=== PATIENT | male | born 1965 | race Caucasian/White ===

== ENCOUNTER 2016-11-08 19:21 | Emergency (ER) | payer BC ==
[2016-11-08] MEDS ORDERED: CLOPIDOGREL BISULFATE 300 MG TABLET PO ONE (20:32)
[2016-11-08 20:35] LABS: ABSOLUTE BASOPHILS # (AUTO) 0.1 10^3/uL (0.0-0.2); ABSOLUTE EOSINOPHILS # (AUTO) 0.2 10^3/uL (0.0-0.6); ABSOLUTE LYMPHOCYTES (AUTO) 2.2 10^3/uL (0.5-4.7); ABSOLUTE MONOCYTES (AUTO) 0.4 10^3/uL (0.1-1.4); ABSOLUTE NEUT (AUTO) 3.9 10^3/uL (1.7-8.2); EOSINOPHILS % (AUTO) 2.6 % (0-6); HEMATOCRIT 41.1 % (37.9-51.0); HEMOGLOBIN 14.1 g/dL (13.5-17.0); HGB HCT DIFFERENCE 1.2; LYMPHOCYTES % (AUTO) 32.7 % (13-45); MEAN CORPUSCULAR HEMOGLOBIN 30.2 pg (27.0-33.4); MEAN CORPUSCULAR HGB CONC 34.3 g/dL (32.0-36.0); MEAN CORPUSCULAR VOLUME 88 fl (80-97); MONOCYTES % (AUTO) 6.1 % (3-13); RED BLOOD COUNT 4.67 10^6/uL (4.35-5.55); RED CELL DISTRIBUTION WIDTH 12.9 % (11.5-14.0); SEGMENTED NEUTROPHILS % (AUTO) 57.6 % (42-78); WHITE BLOOD COUNT 6.7 10^3/uL (4.0-10.5)
[2016-11-08 20:36] LABS: PROTHROMBIN TIME 12.2 SEC (11.4-15.4)
[2016-11-08 20:37] LABS: PARTIAL THROMBOPLASTIN TIME 26.2 SEC (23.5-35.8)
[2016-11-08 20:59] LABS: ALANINE AMINOTRANSFERASE 28 U/L (21-72); ALBUMIN 3.7 g/dL (3.5-5.0); ALKALINE PHOSPHATASE 59 U/L (38-126); ANION GAP 12 (5-19); ASPARTATE AMINO TRANSFERASE 22 U/L (17-59); BILIRUBIN,DIRECT 0.2 mg/dL (0.0-0.4); BILIRUBIN,TOTAL 0.5 mg/dL (0.2-1.3); BLOOD UREA NITROGEN 28 mg/dL (7-20); CALCIUM 9.3 mg/dL (8.4-10.2); CARBON DIOXIDE 24 mmol/L (22-30); CHLORIDE 104 mmol/L (98-107); CREATINE KINASE 152 U/L (55-170); CREATININE RESULT 1.16 mg/dL (0.52-1.25); GLUCOSE 216 mg/dL (75-110); POTASSIUM 4.7 mmol/L (3.6-5.0); SODIUM 139.5 mmol/L (137-145); TOTAL PROTEIN 6.2 g/dL (6.3-8.2)
--- NOTE | 2016-11-08 21:09 | ER Document Report ---
ED General - General Chief Complaint: S/S of Possible Stroke Stated Complaint: POSSIBLE STROKE Notes: Patient is a 50-year-old male with past medical history of hypertension, diabetes and hyperlipidemia who presents with complaints of a 5 minute episode of expressive aphasia. States he was out dinner and he suddenly became unable to speak correctly. States he was unable to articulate his words but could fully understand language but knew what he wanted to say. The symptoms did spontaneously resolve after approximately 5 minutes. Nothing was noted to improve or worsen the symptoms. He denies any associated weakness, numbness, headache, neck pain, facial droop, or difficulty with ambulation. No history of similar symptoms in the past. He has not seen his primary care doctor regarding today's concerns. He has no history of TIA or stroke. TRAVEL OUTSIDE OF THE [place] IN LAST 30 DAYS: No - Related Data Allergies/Adverse Reactions: No Known Allergies Allergy (Unverified 11/08/16 21:40) Home Medications: Current Home Medications Atorvastatin Calcium [Atorvastatin Calcium] 20 mg PO DAILY 11/08/16 [History] Fenofibrate,Micronized [Fenofibrate] 134 mg PO DAILY 11/08/16 [History] Glimepiride [Glimepiride] 4 mg PO BID 11/08/16 [History] Insulin Glargine,Hum.rec.anlog [Rob Solostar] 50 unit SUBCUT BID 11/08/16 [ History] Lisinopril [Lisinopril] 40 mg PO DAILY 11/08/16 [History] Metformin HCl [Metformin HCl] 500 mg PO BID 11/08/16 [History] Paroxetine HCl [Paroxetine HCl] 60 mg PO QAM 11/08/16 [History] Promethazine HCl [Promethazine HCl] 25 mg PO Q4HP PRN 11/08/16 [History] Past Medical History - General Information source: Patient - Social History Smoking Status: Never Smoker Frequency of alcohol use: None Drug Abuse: None Lives with: Spouse/Significant other Family History: Reviewed & Not Pertinent Review of Systems - Review of Systems Notes: Constitutional: Negative for fever. HENT: Negative for sore throat. Eyes: Negative for visual changes. Cardiovascular: Negative for chest pain. Respiratory: Negative for shortness of breath. Gastrointestinal: Negative for abdominal pain, vomiting or diarrhea. Genitourinary: Negative for dysuria. Musculoskeletal: Negative for back pain. Skin: Negative for rash. Neurological: Negative for headaches, weakness or numbness. 10 point ROS negative except as marked above and in HPI. Physical Exam - Vital signs Vitals: Temp Pulse Resp BP Pulse Ox 97.8 F 92 20 157/100 H 96 11/08/16 19:32 11/08/16 19:32 11/08/16 19:32 11/08/16 19:32 11/08/16 19:32 Interpretation: Hypertensive Notes: PHYSICAL EXAMINATION: GENERAL: Well-appearing, well-nourished and in no acute distress. HEAD: Atraumatic, normocephalic. EYES: Pupils equal round and reactive to light, extraocular movements intact, sclera anicteric, conjunctiva are normal. ENT: nares patent, oropharynx clear without exudates. Moist mucous membranes. NECK: Normal range of motion, supple without lymphadenopathy LUNGS: Breath sounds clear to auscultation bilaterally and equal. No wheezes rales or rhonchi. HEART: Regular rate and rhythm without murmurs ABDOMEN: Soft, nontender, normoactive bowel sounds. No guarding, no rebound. No masses appreciated. EXTREMITIES: Normal range of motion, no pitting or edema. No cyanosis. NEUROLOGICAL: Face symmetric. Tongue protrudes midline. Extraocular motions intact. Pupils are 2 mm and equally reactive. Normal speech, normal gait. 5 out of 5 strength in both the distal and proximal upper and lower extremities bilaterally. Sensation is grossly intact throughout. Finger to nose testing normal. Pronator drift normal. PSYCH: Normal mood, normal affect. SKIN: Warm, Dry, normal turgor, no rashes or lesions noted. Course - Re-evaluation Re-evalutation: 11/08/16 21:08 She presents with symptoms that are most consistent with an acute transient ischemic attack. It sounds as if patient had an expressive aphasia that lasted for approximate 5 minutes without any additional neurologic deficits. His NIH stroke scale time of arrival is 0. He has no neurologic deficits or so symptoms at this time. Patient is ready medically managed for hypertension, hyperlipidemia and diabetes. Will obtain a carotid Doppler study to see if there is intervention required from this perspective. Will also load with Plavix as patient is already on aspirin. 11/08/16 23:29 Unfortunately we could not obtain a carotid Doppler study tonight due to miscommunication with the Doppler tach. Patient will schedule this test as soon as possible tomorrow through his primary care doctor. He has remained asymptomatic. He will be started on Plavix for the next 21 days. He is considered low risk by the ABCD 2 score and I believe it is appropriate to manage this episode as an outpatient today. Patient and his at the bedside on agreement with this and of verbalized the understanding that they need to follow-up very closely as an outpatient. ABCD2 score: 3 points Per the validation study, 0-3 points: Low Risk 2-Day Stroke Risk: 1.0% 7-Day Stroke Risk: 1.2% 90-Day Stroke Risk: 3.1% - Vital Signs Vital signs: Temp Pulse Resp BP Pulse Ox 97.8 F 92 14 144/89 H 93 11/08/16 19:32 11/08/16 19:32 11/08/16 23:31 11/08/16 23:31 11/08/16 23:31 - Laboratory Result Diagrams: 11/08/16 20:19 11/08/16 20:19 Laboratory results interpreted by me: 11/08/16 20:19 BUN 28 H Glucose 216 H Total Protein 6.2 L - Diagnostic Test Radiology reviewed: Image reviewed, Reports reviewed Radiology results interpreted by me: 11/08/16 23:30 CT head: No acute intracranial bleed or stroke - EKG Interpretation by Me Additional EKG results interpreted by me: 11/08/16 23:30 Normal sinus rhythm. Rate 88. No ST elevations or depressions. QTC is 465. Discharge - Discharge Clinical Impression: TIA (transient ischemic attack) Qualifiers: Transient cerebral ischemia type: unspecified Qualified Code(s): G45.9 - Transient cerebral ischemic attack, unspecified Condition: Good Disposition: HOME, SELF-CARE Additional Instructions: Your symptoms today are consistent with a transient ischemic attack. Please take the Plavix as prescribed in addition to the aspirin you are already taking. You will take the Plavix for the next 21 days. Please return if you develop recurrence of your speech difficulties, weakness, numbness, chest pain, vomiting, severe headache, or any other symptoms that are worrisome to you. Prescriptions: Clopidogrel Bisulfate [Plavix 75 mg Tablet] 75 mg PO DAILY #21 tablet Referrals: MALCOM LAWRENCE MD [Primary Care Provider] - Follow up tomorrow
[2016-11-08 21:11] LABS: TROPONIN I < 0.012 ng/mL
[2016-11-08 23:45] VITALS: BP 144/89
--- NOTE | 2016-11-09 08:10 | EKG REPORT ---
SEVERITY:- ABNORMAL ECG - SINUS RHYTHM PROBABLE LEFT ATRIAL ABNORMALITY LEFT VENTRICULAR HYPERTROPHY : Confirmed by: John Matute MD 09-Nov-2016 08:08:58
== END 2016-11-08 23:54 | disposition home or self-care (01) ==
LOC: ER 19:21
DX: G45.9 Transient cerebral ischemic attack, unspecified (principal); I10 Essential (primary) hypertension; E11.9 Type 2 diabetes mellitus without complications; E78.5 Hyperlipidemia, unspecified; Z79.899 Other long term (current) drug therapy; Z79.4 Long term (current) use of insulin
CPT/HCPCS: 93005; 99285; 36415; 82553; 82550; 85025; 85610; 85730; 80053; 84484; 71010; 70450; 93010; J3490

== ENCOUNTER → 2016-11-15 | Outpatient (CLI) | payer BC | LOC: SP 09:34 | PROVIDERS: ATTEND Internal Medicine | DX: G45.9 Transient cerebral ischemic attack, unspecified (principal); M54.2 Cervicalgia | CPT/HCPCS: 93880 ==

== ENCOUNTER → 2018-03-14 | Outpatient (CLI) | payer BC ==
[2018-03-14 10:39] LABS: ALANINE AMINOTRANSFERASE 41 U/L (21-72); ANION GAP 11 (5-19); BLOOD UREA NITROGEN 22 mg/dL (7-20); CALCIUM 10.1 mg/dL (8.4-10.2); CARBON DIOXIDE 29 mmol/L (22-30); CHLORIDE 101 mmol/L (98-107); CHOLESTEROL 151.05 mg/dL (0-200); GLUCOSE 342 mg/dL (75-110); POTASSIUM 5.1 mmol/L (3.6-5.0); SODIUM 141.1 mmol/L (137-145); TRIGLYCERIDES 510 mg/dL (<150)
[2018-03-14 10:50] LABS: DIRECT LDL 32 mg/dL (<100)
[2018-03-15 11:40] LABS: CREATININE URINE 60.7 mg/dL (Not Estab.)
== END ==
LOC: LAB 09:50
PROVIDERS: ATTEND Internal Medicine
DX: E11.9 Type 2 diabetes mellitus without complications (principal); E78.5 Hyperlipidemia, unspecified; Z79.899 Other long term (current) drug therapy
CPT/HCPCS: 80048; 80061; 82043; 82570; 83036; 84460

== ENCOUNTER 2018-03-21 20:59 | Emergency (ER) | payer BC ==
[2018-03-21] MEDS ORDERED: METOCLOPRAMIDE HCL INJ/PF 10 MG/2 ML SDV IV ONE (22:16)
[2018-03-21] MEDS ORDERED: NORMAL SALINE 1000 ML 1,000 ML IV ONE (22:17)
--- NOTE | 2018-03-21 22:20 | ER Document Report ---
ED General - General Chief Complaint: Nausea/Vomiting Stated Complaint: NAUSEA Time Seen by Provider: 03/21/18 22:10 Cannot obtain history due to: Unstable vital signs Notes: Patient is a pleasant 52-year-old male who presents with complaint of feeling sick and nauseous for about a week. He says that whenever she eats or drinks will get more nauseous. He says he notices this when he vomits sometimes will be food in his abdomen that was from any hours ago. He is followed by Dr. Lawrence. He recently saw Dr. De Los Santos who did some blood work which showed his A1c was at 12.1. Says blood sugar has not been well controlled. He says sometimes he is missed some his medications. He said tonight he had been thrown up even water and therefore was unable to keep down his promethazine. He therefore eventually took a Xanax because he felt like he was tympanic. After taking the Xanax and his Prozac he felt a lot better. He says he still felt some better but still feels a bit dehydrated is concerned because of the recurrent vomiting. He denies any abdominal pain. No chest pain. No shortness of breath. He does not smoke and does not drink alcohol. Previous history of cholecystectomy. No abnormal bowel movements. No blood in stool. TRAVEL OUTSIDE OF THE [place] IN LAST 30 DAYS: No - Related Data Allergies/Adverse Reactions: No Known Allergies Allergy (Unverified 11/08/16 21:40) Past Medical History - Social History Smoking Status: Never Smoker Frequency of alcohol use: None Drug Abuse: None Family History: Reviewed & Not Pertinent - Past Medical History Cardiac Medical History: Reports: Hx Hypertension Endocrine Medical History: Reports: Hx Diabetes Mellitus Type 2 Past Surgical History: Reports: Hx Cholecystectomy - Immunizations Hx Pneumococcal Vaccination: 09/22/16 Review of Systems - Review of Systems Notes: My Normal Review Basic REVIEW OF SYSTEMS: CONSTITUTIONAL : Denies fever, chills, or sweats. Denies recent illness. EENT: Denies eye, ear, throat, or mouth pain or symptoms. Denies nasal or sinus congestion. CARDIOVASCULAR: Denies chest pain. RESPIRATORY: Denies cough, cold, or chest congestion. Denies shortness of breath, difficulty breathing, or wheezing. GASTROINTESTINAL: Denies abdominal pain. Vomiting. MUSCULOSKELETAL: Denies neck or back pain or joint pain or swelling. SKIN: Denies rash or skin lesions. NEUROLOGICAL: Denies altered mental status or loss of consciousness. Denies headache. Denies weakness or paralysis or loss of use of either side. Denies problems with gait or speech. Denies sensory or motor loss. ALL OTHER SYSTEMS REVIEWED AND NEGATIVE. Physical Exam - Vital signs Vitals: Temp Pulse Resp BP Pulse Ox 97.7 F 107 H 18 178/97 H 95 03/21/18 21:54 03/21/18 21:54 03/21/18 21:54 03/21/18 21:54 03/21/18 21:54 - Notes Notes: General Appearance: Well nourished, alert, cooperative, no acute distress, no obvious discomfort. Vitals: reviewed, See vital signs table. Head: no swelling or tenderness to the head Eyes: PERRL, EOMI, Conjuctiva clear Mouth: No decreasd moisture Throat: No tonsillar inflammation, No airway obstruction, No lymphadenopathy Lungs: No wheezing, No rales, No rhonci, No accessory muscle use, good air exchange bilaterally. Heart: Normal rate, Regular rythm, No murmur, no rub Abdomen: Normal BS, soft, No rigidity, No abdominal tenderness, No guarding, no rebound, no abdominal masses, no organomegaly Extremities: strength 5/5 in all extremities, good pulses in all extremities, no swelling or tenderness in the extremities, no edema. Skin: warm, dry, appropriate color, no rash Neuro: speech clear, oriented x 3, normal affect, responds appropriately to questions. Course - Re-evaluation Re-evalutation: 03/22/18 00:00 Patient is feeling much improved after the Reglan. He says it helped him feel better than is felt in several days. He looks well and has had no further vomiting. Laboratory evaluation is unremarkable except for some mild hyperglycemia. The stomach fully safe to be discharged home. I suspect he probably has gastroparesis. He actually has an upcoming appointment next week with his electrical and radio mechanic, Dr. Aguiar. I informed him to stop taking the Promethazine and start taking the Reglan. He is to return to ER if she has intractable vomiting, any abdominal pain, fevers, or feels unwell. Patient agrees with plan will be discharged home. Dictation of this chart was performed using voice recognition software; therefore, there may be some unintended grammatical errors. - Vital Signs Vital signs: Temp Pulse Resp BP Pulse Ox 97.3 F 107 H 20 153/99 H 95 03/21/18 23:01 03/21/18 21:54 03/21/18 23:01 03/21/18 23:00 03/21/18 23:01 - Laboratory Result Diagrams: 03/21/18 22:50 03/21/18 22:50 Laboratory results interpreted by me: 03/21/18 22:50 Glucose 274 H Total Bilirubin 1.7 H - EKG Interpretation by Me Additional EKG results interpreted by me: 03/21/18 23:03 EKG is reviewed and interpreted by me. EKG shows sinus tachycardia with a rate of [address] segment elevation or depression. No ischemic T-wave inversions. MA interval, QRS duration, QTc intervals are within normal range. Old EKG for comparison is from November 08, 2016. Discharge - Discharge Clinical Impression: Vomiting Qualifiers: Vomiting type: unspecified Vomiting Intractability: non-intractable Nausea presence: with nausea Qualified Code(s): R11.2 - Nausea with vomiting, unspecified Condition: Good Disposition: HOME, SELF-CARE Additional Instructions: Based on your symptoms I suspect you may have gastroparesis related to your diabetes. I have prescribed you a medication called Reglan which will typically help with gastroparesis. Please stop taking the Phenergan and start using the Reglan to see if this helps improve your symptoms. Please follow-up with Dr. Aguiar at your upcoming appointment as scheduled. Please return to the ER immediately if you have fevers, intractable vomiting, bloody stool, blood in your vomit, or fever blood sugars become consistently over 300. Prescriptions: Metoclopramide HCl [Reglan 10 mg Tablet] 1 tab PO ASDIR PRN #25 tablet PRN Reason: Forms: Return to Work Referrals: MALCOM LAWRENCE MD [ACTIVE STAFF] - Follow up in 3-5 days
[2018-03-21] MEDS ORDERED: MAG HYDROX/AL HYDROX/SIMETH SUSP 30 ML UDCUP PO ONE (23:28)
[2018-03-21 23:31] LABS: ABSOLUTE BASOPHILS # (AUTO) 0.1 10^3/uL (0.0-0.2); ABSOLUTE EOSINOPHILS # (AUTO) 0.2 10^3/uL (0.0-0.6); ABSOLUTE MONOCYTES (AUTO) 0.4 10^3/uL (0.1-1.4); ABSOLUTE NEUT (AUTO) 5.2 10^3/uL (1.7-8.2); BASOPHILS % (AUTO) 0.7 % (0-2); HEMATOCRIT 44.6 % (37.9-51.0); HEMOGLOBIN 15.3 g/dL (13.5-17.0); LYMPHOCYTES % (AUTO) 25.7 % (13-45); MEAN CORPUSCULAR HEMOGLOBIN 30.1 pg (27.0-33.4); MEAN CORPUSCULAR HGB CONC 34.2 g/dL (32.0-36.0); MEAN CORPUSCULAR VOLUME 88 fl (80-97); MONOCYTES % (AUTO) 5.1 % (3-13); PLATELET COUNT 236 10^3/uL (150-450); RED BLOOD COUNT 5.08 10^6/uL (4.35-5.55); RED CELL DISTRIBUTION WIDTH 12.9 % (11.5-14.0); SEGMENTED NEUTROPHILS % (AUTO) 65.5 % (42-78); TOTAL CELLS COUNTED % (AUTO) 100 %; WHITE BLOOD COUNT 7.9 10^3/uL (4.0-10.5)
[2018-03-21 23:43] LABS: ALANINE AMINOTRANSFERASE 58 U/L (21-72); ALBUMIN 4.4 g/dL (3.5-5.0); ALKALINE PHOSPHATASE 76 U/L (38-126); ANION GAP 15 (5-19); ASPARTATE AMINO TRANSFERASE 41 U/L (17-59); BILIRUBIN,DIRECT 0.2 mg/dL (0.0-0.4); BILIRUBIN,TOTAL 1.7 mg/dL (0.2-1.3); BLOOD UREA NITROGEN 15 mg/dL (7-20); CALCIUM 9.8 mg/dL (8.4-10.2); CARBON DIOXIDE 27 mmol/L (22-30); CHLORIDE 100 mmol/L (98-107); GLUCOSE 274 mg/dL (75-110); LIPASE 149.7 U/L (23-300); POTASSIUM 4.3 mmol/L (3.6-5.0); SODIUM 142.3 mmol/L (137-145); TOTAL PROTEIN 7.1 g/dL (6.3-8.2)
[2018-03-22 00:11] VITALS: BP 154/95
--- NOTE | 2018-03-22 21:49 | EKG REPORT ---
SEVERITY:- BORDERLINE ECG - SINUS TACHYCARDIA PROBABLE LEFT ATRIAL ABNORMALITY CONSIDER INFERIOR MT OLD : Confirmed by: Hari Valdez 22-Mar-2018 21:48:43
== END 2018-03-22 00:15 | disposition home or self-care (01) ==
LOC: ER 20:59
DX: R11.2 Nausea with vomiting, unspecified (principal); I10 Essential (primary) hypertension; E11.9 Type 2 diabetes mellitus without complications; Z90.49 Acquired absence of other specified parts of digestive tract
CPT/HCPCS: 93005; 99284; 96361; 96374; 36415; 83690; 83735; 85025; 80053; 93010; J2765; J7030

== ENCOUNTER → 2018-06-29 | Outpatient (CLI) | payer BC ==
[2018-06-29 15:00] LABS: CHOLESTEROL 138.03 mg/dL (0-200); TRIGLYCERIDES 165 mg/dL (<150)
[2018-06-29 15:10] LABS: DIRECT LDL 62 mg/dL (<100)
[2018-06-30 13:38] LABS: CREATININE URINE 64.5 mg/dL (Not Estab.)
[2018-06-30 14:46] LABS: MICROALBUMIN URINE 936.9 ug/mL (Not Estab.)
== END ==
LOC: LAB 14:23
PROVIDERS: ATTEND Internal Medicine
DX: E11.42 Type 2 diabetes mellitus with diabetic polyneuropathy (principal); E78.5 Hyperlipidemia, unspecified; N19 Unspecified kidney failure
CPT/HCPCS: 36415; 80061; 82043; 82570; 83036

== ENCOUNTER → 2018-11-23 | Outpatient (CLI) | payer BC ==
[2018-11-23 09:19] LABS: ANION GAP 7 (5-19); BLOOD UREA NITROGEN 15 mg/dL (7-20); CALCIUM 9.8 mg/dL (8.4-10.2); CARBON DIOXIDE 30 mmol/L (22-30); CHLORIDE 105 mmol/L (98-107); CHOLESTEROL 127.17 mg/dL (0-200); GLUCOSE 131 mg/dL (75-110); POTASSIUM 4.3 mmol/L (3.6-5.0); SODIUM 142.1 mmol/L (137-145); TRIGLYCERIDES 197 mg/dL (<150)
[2018-11-23 09:31] LABS: DIRECT LDL 55 mg/dL (<100)
[2018-11-23 09:33] LABS: VLDL CHOLESTEROL 39.4 mg/dL (10-31)
[2018-11-24 10:37] LABS: CREATININE URINE 129.9 mg/dL (Not Estab.)
[2018-11-24 11:35] LABS: MICROALBUMIN URINE 982.4 ug/mL (Not Estab.)
== END ==
LOC: LAB 08:33
PROVIDERS: ATTEND Internal Medicine
DX: E11.8 Type 2 diabetes mellitus with unspecified complications (principal); E78.5 Hyperlipidemia, unspecified; N19 Unspecified kidney failure; E55.9 Vitamin D deficiency, unspecified
CPT/HCPCS: 36415; 80048; 80061; 82043; 82306; 82570; 83036

== ENCOUNTER → 2019-03-14 | Outpatient (CLI) | payer BC ==
[2019-03-14 11:35] LABS: TRIGLYCERIDES 120 mg/dL (<150)
[2019-03-14 11:47] LABS: DIRECT LDL 45 mg/dL (<100)
== END ==
LOC: LAB 10:55
PROVIDERS: ATTEND Internal Medicine
DX: E78.5 Hyperlipidemia, unspecified (principal); E11.9 Type 2 diabetes mellitus without complications; E55.9 Vitamin D deficiency, unspecified
CPT/HCPCS: 36415; 80061; 82306; 83036

== ENCOUNTER 2020-05-15 09:10 | Day surgery (SDC) | payer BC ==
[~2020-05-15 09:10] MED LIST: CHONDR SU A NA/HYALUR INTRAOC KIT (SURGICARE) ONE; DORZOLAMIDE HCL 2%/TIMOLOL MALEAT 0.5% OPH SOLN 10 ML OD PRN; EPINEPHRINE INJ/PF 1 MG/1 ML AMPULE ONE; FENTANYL CITRATE INJ/PF 100 MCG/2 ML AMPUL ONE; KETOROLAC TROMETHAMINE 0.45% 4 DROP/0.4 ML DROPERETTE OD PRN; LIDOCAINE 1%/PHENYLEPHRINE 1.5% 0.8 ML SYRINGE ONE; MIDAZOLAM 2 MG/2 ML INJ ONE; PREDNISOLONE ACETATE 1% OPH SUSP 5 ML OD PRN; TRYPAN BLUE 0.06 % OPH SOLN 0.5 ML DISP.SYRIN ONE
[2020-05-15] MEDS: CYCLOPENTOLATE 0.2%/PHENYLEPHRINE 1% OPH SOLN 2 ML OD PRN ×3 (09:45→10:07)
[2020-05-15] MEDS: TETRACAINE HCL 0.5% OPH SOLN 4 ML OD PRN ×4 (09:45→10:24)
[2020-05-15] MEDS: BESIFLOXACIN HCL 0.6% OPH SUSP 5 ML BOTTLE OD PRN ×3 (09:46→10:41)
[2020-05-15] MEDS: TROPICAMIDE 1% OPH SOLN 15 ML OD PRN ×3 (09:46→10:07)
[2020-05-15] MEDS ORDERED: INSULIN REG, HUMAN 100 UNIT/ML 3 ML VIAL (PYX) ONE (09:56)
--- NOTE | 2020-05-15 13:18 | Operative Report ---
Operative Report-[facility] Operative Report: DATE OF SURGERY: 05/15/2020 PREOPERATIVE DIAGNOSIS: Cataract, right eye POSTOPERATIVE DIAGNOSIS: Cataract, right eye OPERATION: Cataract extraction with insertion of an IOL of the right eye. Intraocular Lens Model: [18.5 SN 60 WF lens] he underwent surgery for difficulty seeing at night secondary to glare from headlights SURGEON: Eliezer Herrera MD ANESTHESIA: Topical PROCEDURE: After obtaining appropriate consent, the patient's right eye was prepped and draped in a sterile fashion as well as the surgeon in the sterile manner and cataract surgery was started. First a paracentesis blade was used to make a side-port incision. Viscoelastic was used to inflate the anterior chamber. Next a 2.4 mm incision was made with a 2.4 mm blade, clear corneal temporarily. A continuous capsulorrhexis was made using a cystotome and Utrata forceps. Following this hydrodissection was carried out to make the chana fully loose and mobile and it was rotated. Following this, a divide and conquer technique was used to phacoemulsify the chana. The remaining cortex was removed with an irrigation/aspiration. Provisc was instilled into the capsular bag to inflate the bag. The intraocular lens was placed. The remaining viscoelastic material was removed with irrigation/aspiration. Following this, the incision was found to be watertight. Besivance and Cosopt was instilled into the eye and a protective shield was placed over the eye. The patient was reurned to the postoperative recovery in a stable condition.
== END 2020-05-15 11:14 ==
LOC: SC 09:10
PROVIDERS: ATTEND Internal Medicine
DX: H25.89 Other age-related cataract (principal); E11.3593 Type 2 diabetes mellitus with proliferative diabetic retinopathy without macular edema, bilateral; H52.4 Presbyopia; I10 Essential (primary) hypertension; E78.00 Pure hypercholesterolemia, unspecified; Z87.891 Personal history of nicotine dependence; Z79.84 Long term (current) use of oral hypoglycemic drugs; Z79.4 Long term (current) use of insulin; K21.9 Gastro-esophageal reflux disease without esophagitis
CPT/HCPCS: 66984; 82962; V2632; J2250; J3490 ×3; J0171; J3010; 142; J1815

== ENCOUNTER 2020-06-05 08:22 | Day surgery (SDC) | payer BC ==
[~2020-06-05 08:22] MED LIST changes: -DORZOLAMIDE HCL 2%/TIMOLOL MALEAT 0.5% OPH SOLN 10 ML OD PRN; -FENTANYL CITRATE INJ/PF 100 MCG/2 ML AMPUL ONE; -KETOROLAC TROMETHAMINE 0.45% 4 DROP/0.4 ML DROPERETTE OD PRN; +KETOROLAC TROMETHAMINE 0.45% 4 DROP/0.4 ML DROPERETTE OS PRN; -LIDOCAINE 1%/PHENYLEPHRINE 1.5% 0.8 ML SYRINGE ONE; +LIDOCAINE 1%/PHENYLEPHRINE 1.5% 1 ML VIAL ONE; -MIDAZOLAM 2 MG/2 ML INJ ONE; -PREDNISOLONE ACETATE 1% OPH SUSP 5 ML OD PRN; -TRYPAN BLUE 0.06 % OPH SOLN 0.5 ML DISP.SYRIN ONE
[2020-06-05] MEDS ORDERED: MIDAZOLAM 2 MG/2 ML INJ ONE (08:49)
[2020-06-05] MEDS: TROPICAMIDE 1% OPH SOLN 15 ML OS PRN ×3 (09:17→09:38)
[2020-06-05] MEDS: TETRACAINE HCL 0.5% OPH SOLN 4 ML OS PRN ×3 (09:17→09:53)
[2020-06-05] MEDS: BESIFLOXACIN HCL 0.6% OPH SUSP 5 ML BOTTLE OS PRN ×4 (09:18→10:07)
[2020-06-05] MEDS: CYCLOPENTOLATE 0.2%/PHENYLEPHRINE 1% OPH SOLN 2 ML OS PRN ×3 (09:18→09:38)
[2020-06-05] MEDS: DORZOLAMIDE HCL 2%/TIMOLOL MALEAT 0.5% OPH SOLN 10 ML OS PRN ×2 (10:07)
[2020-06-05] MEDS: PREDNISOLONE ACETATE 1% OPH SUSP 5 ML OS PRN ×2 (10:07)
--- NOTE | 2020-06-05 12:14 | Operative Report ---
Operative Report-[facility] Operative Report: DATE OF SURGERY: 06/05/2020 PREOPERATIVE DIAGNOSIS: Cataracts, left eye POSTOPERATIVE DIAGNOSIS: Cataract, left eye OPERATION: Cataract extraction with insertion of an IOL of the left eye. Intraocular Lens Model: [18.5 diopter SN 60 WF] Patient underwent surgery for difficulty seeing the television SURGEON: Eliezer Herrera MD ANESTHESIA: Topical PROCEDURE: After obtaining appropriate consent, the patient's left eye was prepped and draped in a sterile fashion as well as the surgeon in the sterile ma nner and cataract surgery was started. First a paracentesis blade was used to make a side-port incision. Viscoelastic was used to inflate the anterior chamber. Next a 2.4 mm incision was made with a 2.4 mm blade, clear corneal temporarily. A continuous capsulorrhexis was made using a cystotome and Utrata forceps. Following this hydrodissection was carried out to make the lens fully loose and mobile and it was rotated 90 degrees. Following this, a divide and conquer technique was used to phacoemulsify the lens. The remaining cortex was removed with an irrigation/aspiration. Provisc was instilled into the capsular bag to inflate the bag.The intraocular lens was placed. The remaining viscoelastic material was removed with irrigation/aspiration. Following this, the incision was found to be watertight. Besivance and Cosopt was instilled into the eye and a protective shield was placed over the eye. The patient was returned to the postoperative recovery in a stable condition.
== END 2020-06-05 10:40 ==
LOC: SC 08:22
PROVIDERS: ATTEND Internal Medicine
DX: H25.89 Other age-related cataract (principal); Z96.1 Presence of intraocular lens; E11.36 Type 2 diabetes mellitus with diabetic cataract; I10 Essential (primary) hypertension; E78.00 Pure hypercholesterolemia, unspecified; Z87.891 Personal history of nicotine dependence; Z79.4 Long term (current) use of insulin
CPT/HCPCS: 66984; 82962; V2632; J2250; J3490 ×2; J0171; 142